=== PATIENT | male | born 1970 | race Caucasian/White ===

== ENCOUNTER 2023-03-15 13:26 | Outpatient (CLI) | payer OTHER, BC, SELFPAY ==
--- NOTE | 2023-03-15 13:45 | MR_ITS ---
[facility] [address] [facility] [address] Phone:?[phone] Fax:?[phone] Referring Physician Information: Vincenzo Lyon M.D. [address] [place] [id number] Phone:?[phone] Fax:?[phone] Patient:?Eren Concepcion D.O.B:?1970 Sex:?Male Phone:?[phone] [facility] MRN:?[id number] Exam Date:?03/15/2023 ? EXAM: MRI OF THE LEFT ELBOW CLINICAL INFORMATION: The patient is a 52-year-old with left elbow pain. Evaluate for distal biceps injury. PRIOR SURGERY: None reported. COMPARISON STUDIES: There are no prior studies available for comparison. TECHNICAL INFORMATION: Imaging was produced on a high-field, 1.5 Vika MR scanner. Axial proton-density and T2 imaging of the left elbow was performed in addition to sagittal T1, proton-density, T2, and STIR imaging. Coronal proton- density, T2, T1, and STIR imaging was also performed. FINDINGS: Elbow joint: Effusion: Mild. Ganglion cyst: None. Osteochondral surfaces: No definite chondral or osteochondral injury can be seen along the articular surfaces of the left elbow. Loose bodies: No well-defined intra-articular loose bodies are present. Olecranon bursa: Soft tissue edema and/or hemorrhage can be seen along the posterior, medial, and lateral aspects of the elbow, however no definite changes are seen to suggest olecranon bursitis. Osseous structures: Humerus: No fracture, osteochondritis dissecans or marrow edema/pathology. Radius: No fracture or marrow edema. Ulna: No fracture or marrow edema. Myotendinous structures: Biceps: There is a complete disruption of the distal biceps tendon from its radial tuberosity attachment with retraction of the tendon to the level of the distal humeral diaphysis, seen on sagittal series 5 image 13. The retraction measures approximately 10.5 cm in craniocaudal dimension. Soft tissue edema and/or hemorrhage is noted within the antecubital fossa region with a fluid collection seen about the retracted distal biceps tendon on coronal series 10 image 6 and on sagittal series 5 image 16. The fluid collection measures approximately 8.5 cm in craniocaudal dimension, 2.5 cm in anteroposterior dimension, and 4.5 cm in mediolateral dimension. Moderate underlying biceps tendinosis can be seen with strain of the distal biceps myotendinous junction. Triceps: Intact posterior tendinous and anterior muscular insertions and lateral aponeurotic component, without tendinopathy, strain or tear. Brachialis: No strain/tear. Forearm extensors: No tear or tendinopathy. There is no evidence for lateral epicondylitis. Forearm flexors: No tear or tendinopathy. There is no evidence for medial epicondylitis. Ligaments: Ulnar collateral: No sprain or disruption. Radial collateral: Normal. Lateral ulnar collateral: Normal. Annular: Intact. Neurovascular structures: Ulnar nerve: Normal, without appreciable edema, thickening or mass. Median neurovascular bundle: Normal. Radial neurovascular bundle: Normal. CONCLUSION: 1. Rupture of the distal biceps tendon from its radial tuberosity attachment with retraction measuring 10.5 cm in craniocaudal dimension. Please see the description above. 2. No other musculotendinous abnormalities are seen. 3. No bony or osteochondral injuries are present. 4. The ligamentous structures of the elbow appear intact. 5. No neurovascular abnormalities are seen. [facility] Electronically signed on 03/15/2023 4:00:00 PM by Daljit Velásquez M.D.
== END 2023-03-15 13:27 | disposition home or self-care (01) ==
PROVIDERS: PCP Physician Assistant Medical; Visit Provider Orthopaedic Surgery
DX: M25.522 Pain in left elbow (principal); S46.212A Strain of muscle, fascia and tendon of other parts of biceps, left arm, initial encounter
CPT/HCPCS: 73221

== ENCOUNTER 2023-03-19 06:00 | Day surgery (SDC) | payer OTHER, SELFPAY ==
[2023-03-19] MEDS: CELECOXIB 200 MG CAPSULE PO (06:03)
[2023-03-19] MEDS: OXYCODONE (CR) 10 MG TAB.ER.12H PO (06:03)
[2023-03-19] MEDS: ACETAMINOPHEN 500 MG TABLET 1000 MG PO (06:03)
[2023-03-19 06:18] VITALS: BMI 58.3
[2023-03-19] MEDS: LACTATED RINGERS 1000 ML 1,000 ML 100 ML IV (07:00)
[2023-03-19] MEDS: SODIUM CHLORIDE 0.9 % (FLUSH) 10 ML SYRINGE IVF (07:00)
[2023-03-19 07:09] VITALS: BP 139/94; PULSE 55; RESP 16; TEMP 36.6; O2SAT 97
[2023-03-19] MEDS: MIDAZOLAM HCL 1 MG/ML inj IVP (07:11)
[2023-03-19] MEDS: fentaNYL 100 MCG/2 ML inj IVP (07:11)
--- NOTE | 2023-03-19 07:11 | SUR.PREOP ---
TIME?OUT:?0711 PT/RN/MDA?VERIFICATION?OF?SURGICAL?SITE,?PROCEDURE,?AND?CONSENT OBTAINED?PRIOR?TO?INVASIVE?PROCEDURE.
[2023-03-19 07:15] VITALS: BP 128/92; PULSE 56; RESP 16; O2SAT 93
--- NOTE | 2023-03-19 07:23 | SUR.PREOP ---
Patient provided home covid negative results to RN.
[2023-03-19] MEDS: CEFAZOLIN 1 GM inj 3 GM IVP (07:30)
--- NOTE | 2023-03-19 07:54 | P.NB_ITS ---
Nerve Block Nerve Block Time Seen by Provider: 07:12 Date Seen: 03/19/23 Type of block requested by surgeon for post-operative analgesia: axillary Side: right Time out performed: Yes Verification of patient name: Yes Verification of date of : Yes Site marking: site marked Name of person performing procedure: Radu Continuous monitoring Was continuous monitoring of O2 sat, B/P, director of cardiac rehabilitation, recorded every 15 minutes?: Yes Procedure Checklist: sterile prep, needles and gloves Ultrasound guided. Images saved: Yes Medications given in 5ml increments after negative aspiration: Ropivicaine %: 0.5 mL: 30 Needle gauge: 22 Patient tolerated procedure well: Yes Additional comments: Needle noted adjacent to nerve Block Charges Block Charge (with Pro Fee): Brachial Plexus Use of Ultrasound Machine for Block: Yes- US Guidance/pain block
--- NOTE | 2023-03-19 07:54 | W.ANESCHARGE ---
Anesthesia Charges Start Date/Time Anesthesia Start Date: 03/19/23 Anesthesia Start Time: 07:24 Stop Date/Time Anesthesia Stop Date: 03/19/23 Anesthesia Stop Time: 09:15
--- NOTE | 2023-03-19 08:48 | P.ORPRC_ITS ---
Procedure Note Date of procedure: 03/19/23 Procedure: PREOPERATIVE DIAGNOSIS: Right upper extremity distal biceps tendon tear POSTOPERATIVE DIAGNOSIS: Right upper extremity distal biceps tendon tear NAME OF OPERATION: Primary [employer] SURGEON: Vincenzo Lyon MD PROFESSIONAL NURSING TUTOR: Anne Anne PA-C, KENYA Noriega ANESTHESIA: Axillary block plus monitored anesthesia care ESTIMATED BLOOD LOSS: 5 mL. COMPLICATIONS: None. SPECIMENS: None. DRAINS: None. PREOPERATIVE ANTIBIOTICS: Ancef 3 grams INDICATIONS: The patient is a 52-year-old male with a history of a right elbow injury, sustaining full-thickness disruption of the distal biceps tendon. Operative intervention was recommended. The risks, benefits and expected outcomes were discussed in detail. These included but were not limited to: Infection, bleeding, injury to blood vessel or nerve, venous thromboembolism. All questions were answered to their satisfaction. Use of an inside sales assistant was necessary throughout the case for patient positioning and safety, soft tissue retraction and closure. A modifier 22 should be added to this case. The patient weighs 212 kg with a BMI of 58.4 kg/meter sq. Because of this body habitus only light sedation was felt safe by anesthesia. Therefore, there was significant motor function to the muscles in the arm. This and the size of the arm made exposure and repair quite difficult. This doubled the time typically required to complete the case. PROCEDURE: An axillary block and sedation was administered. The patient was placed supine on the operating room table. The right upper extremity was prepped and draped in the usual sterile fashion. The limb was exsanguinated with the Scotty bandage. The pneumatic tourniquet was inflated to 250 mm of mercury. A transverse incision was made 4 cm distal to the antecubital crease. Subcutaneous dissection was taken with tenotomy scissors to the antecubital veins which were carefully preserved throughout the case. The lateral antebrachial cutaneous nerve was visualized in the lateral aspect of our incision and carefully protected throughout the case. The Kevinpert rongeur and the joker elevator were used to debride the radial tuberosity. Dissection was carried proximally, to the biceps tendon. It was markedly retracted and encased in a seroma. We debrided the distal end of biceps tendon and placed a whipstitch with #2 FiberWire suture. The forearm was placed in maximum supination. We drilled a bicortical guide pin through the radial tuberosity. We drilled an 8 mm unicortical socket. We placed the button on the limbs of the whipstitch and advanced it into the socket through the deep guide pin hole and flipped it on the far cortex of proximal radius. We kept the forearm in maximum supination and flexed the elbow while retracting the limbs of the suture. This advanced the distal biceps tendon into the socket to a depth of 10 mm. We placed 1 limb of the suture through the tendon and tied several knots over the top of the tendon. We placed an 8 mm x 10 mm peek interference screw over the radial side of the tendon, pushing it ulnarly. We tied several knots over the top of the screw. This provides an excellent repair of the distal biceps tendon to its anatomic insertion. The wound was irrigated with normal saline. Subcutaneous tissues were closed with a 2-0 Vicryl. Skin was closed with a 3-0 Monocryl in a subcuticular fashion. A dry dressing, splint and sling were applied. Sponge and needle counts were correct x2. The patient tolerated the procedure well. There were no apparent complications. They were carefully transferred to the hospital bed and taken to the postanesthesia care unit in satisfactory condition. PLAN: The patient will be discharged to home. They will follow up in the office next week for a wound check and an AP and lateral view of the elbow, prior to being seen, in preparation for occupational therapy. We will begin gentle active range of motion at that time.
[2023-03-19 09:11] VITALS: BP 122/77; PULSE 92; RESP 16; TEMP 36.2; O2SAT 96
[2023-03-19 09:15] VITALS: BP 124/81; PULSE 92; RESP 16; O2SAT 94
--- NOTE | 2023-03-19 09:19 | W.ANESCHARGE ---
Anesthesia Charges Start Date/Time Anesthesia Start Date: 03/19/23 Anesthesia Start Time: 07:24 Stop Date/Time Anesthesia Stop Date: 03/19/23 Anesthesia Stop Time: 09:15
[2023-03-19 09:45] VITALS: BP 131/88; PULSE 62; RESP 16; TEMP 36.5; O2SAT 95
== END 2023-03-19 10:03 | disposition home or self-care (01) ==
PROVIDERS: PCP Physician Assistant Medical; Visit Provider Orthopaedic Surgery
PROC: (CPT 24341; principal; 2023-03-19 07:15)
DX: S46.211A Strain of muscle, fascia and tendon of other parts of biceps, right arm, initial encounter (principal); Z68.43 Body mass index [BMI] 50.0-59.9, adult; E66.01 Morbid (severe) obesity due to excess calories
CPT/HCPCS: 24341; 01716; 64415; 76942; A4580; A9270; C1713; J0690; J1100; J2250; J2405; J2704; J2795; J3010; J3490; J7120

== ENCOUNTER 2023-06-11 15:00 | Outpatient (RCR) | payer OTHER, SELFPAY | END 2023-06-11 17:54 | disposition home or self-care (01) | PROVIDERS: PCP Physician Assistant Medical; Visit Provider Orthopaedic Surgery | DX: Z98.890 Other specified postprocedural states (principal); Z51.89 Encounter for other specified aftercare | CPT/HCPCS: 97035; 97110; 97140; 97165; X5282 ==

== ENCOUNTER 2023-06-17 07:09 | Outpatient (CLI) | payer BC, SELFPAY ==
--- NOTE | 2023-06-17 08:18 | W.ANESCHARGE ---
Anesthesia Charges Start Date/Time Anesthesia Start Date: 06/17/23 Anesthesia Start Time: 07:56 Stop Date/Time Anesthesia Stop Date: 06/17/23 Anesthesia Stop Time: 08:15
--- NOTE | 2023-06-17 08:37 | W.ANESCHARGE ---
Anesthesia Charges Start Date/Time Anesthesia Start Date: 06/17/23 Anesthesia Start Time: 07:56 Stop Date/Time Anesthesia Stop Date: 06/17/23 Anesthesia Stop Time: 08:15
== END 2023-06-17 07:10 | disposition home or self-care (01) ==
PROVIDERS: PCP Physician Assistant Medical; Visit Provider Internal Medicine Gastroenterology
DX: Z12.11 Encounter for screening for malignant neoplasm of colon (principal); K63.5 Polyp of colon
CPT/HCPCS: 00811; 00812; 45385; 88305; J2704

== ENCOUNTER 2024-07-13 12:59 | Outpatient (CLI) | payer BC, SELFPAY ==
--- OUTSIDE RECORDS SUMMARY | 2024-07-13 13:12 | XMS_ITS | Clinical Summary ---
Author Organization [employer] [facility] Address [place], [place] [address] Care Team Providers Care Radiation Therapy Technologist Name Role Phone Vicki Alexis Primary Care Provider Allergies No known active allergies Medications Medication Sig Dispensed Refills Start Date End Date Status lisinopriL (PRINIVIL; ZESTRIL) 40 mg tabletIndications: Hypertension, unspecified type Take 1 Tablet (40 mg) by mouth once daily. 90 Tablet 3 03/24/2024 Active metoprolol succinate SR (TOPROL XL) 200 mg Sustained-Release tabletIndications: Hypertension, unspecified type Take 1 Tablet (200 mg) by mouth once daily. 90 Tablet 3 03/24/2024 Active furosemide (LASIX) 20 mg tabletIndications: Bilateral lower extremity edema Take 2 Tablets (40 mg) by mouth two times daily. 360 Tablet 1 04/17/2024 Active semaglutide (OZEMPIC) 1 mg/dose (4 mg/3 mL) penIndications:Cla ss 3 severe obesity with body mass index (BMI) of 60.0 to 69.9 in adult, unspecified obesity type, unspecified whether serious comorbidity present (HC) Inject 1 mg subcutaneous once weekly. 9 mL 05/18/2024 Active BIPAPIndications:O SA (obstructive sleep apnea) Auto BIPAP machine for home use at pressure: epap 7-20cmw PS 5-10 , choice of mask, lifetime length of need, daily use. 1 Each 11 05/29/2024 Active Active Problems Problem Noted Date Diagnosed Date Chronic acquired lymphedema 06/25/2024 Colon polyp 06/21/2023 Overview: Colonoscopy 06/2023 TA, repeat in 7 years MARCELINO (obstructive sleep apnea) 02/03/2021 Morbid obesity with BMI of 50.0-59.9, adult /0 04/2021 Hypertension 10/14/2011 Resolved Problems Problem Noted Date Diagnosed Date Resolved Date Meralgia paresthetica 10/26/20132021 Encounters Date Type Department Care Team Description 06/25/2024 9:00 AM CDT Office Visit [facility] [address] [place] [address] Nicolas Ashby MD Sleep Follow-up 06/25/2024 Travel 06/22/2024 Travel 06/09/2024 3:30 PM CDT Office Visit [address] [place] [address] Rl Kaur MD Consult (Initial Office Visit /ECHO 03/24/Recent Labs /PT states feeling good./No cardiac symptoms./Discuss swelling in legs.) 06/09/2024 Travel 05/28/2024 Telephone [facility] [address] [place] [address] Nicolas Ashby MD 05/18/2024 3:20 PM CDT Office Visit [facility] [address] [place] [address] Vicki Alexis PA Medication Management (Lasix and ozempic) 05/18/2024 Travel 04/22/2024 2:00 PM CDT Ancillary Procedure [facility] [address] [place] [id number] 04/21/2024 Travel 04/17/2024 2:40 PM CDT Office Visit [facility] [address] [place] [address] Vicki Alexis PA Medication Management (Lasix and ozempic -) 04/17/2024 Travel from Last 3 Months Immunizations Name Administration Dates Next Due COVID-19 vaccine (Alexia-J& J) KIRAN CAUSEY 03/13/2021 COVID-19 vaccine (Pfizer-Bio NTech 30mcg/0.3mL) 12YO+ BIVALENT PF, MDV 09/28/2022 Influenza, IIV3 (Age 6-35 mos) 09/21/2011 Influenza, IIV3 (Age >=3 years) 10/26/2013,09/17,09/21/2011 Influenza, IIV4 09/28/2022,,10/03/2020,09/08/20 19 Influenza, IIV4 (=>6mos) MDV 09/27/2017 Td (Age >=7 Years) 04/03/2022 Tdap 09/21/2011 Family History Medical History Relation Name Comments Good Health Father Good Health Mother Hypertension Mother Diabetes Paternal Grandfather Cancer No Family History Heart attack No Family History Relation Name Status Comments Father Alive Mother Alive Paternal Grandfather Social History Tobacco Use Types Packs/Day Years Used Date Smoking Tobacco: Never Smokeless Tobacco: Never Tobacco Cessation:Counseling Given: Yes Alcohol Use Standard Drinks/Week Comments No 0 (1 standard drink = 0.6 oz pur e alcohol) PHQ-2 Answer Date Recorded PHQ-2 TOTAL SCORE 0 04/03/2022 Social Connections Answer Date Recorded Frequency of Communication with Friends and Fami ly 0 03/24/2024 Financial Resource Strain Answer Date R ecorded Difficulty of Paying Living Expenses 3 03/24/2024 Difficulty of Paying Living Expenses Not on file 03/24/2024 Food Insecurity Answer Date Recorded Worried About Running Out of Food in the Last Ye ar 1 03/24/2024 Transportation Needs Answer Date Record ed Lack of Transportation (Medical) 1 03/24/2024 Housing Stability Answer Date Recorded Unable to Pay for Housing in the Last Year 1 03/24/2024 Sex and Gender Information Value Date Recorded Sex Assigned at Not on file Gender Identity Not on file Sexual Orientation Not on file Obstetrics History Last Filed Vital Signs Vital Sign Reading Time Taken Comments Blood Pressure 143/84 06/25/2024 8:48 AM CDT Pulse 68 06/25/2024 8:48 AM CDT Temperature 37 ??C (98.6 ??F) 02/22/2023 11:04 AM CDT Respiratory Rate 20 02/21/2023 12:11 PM CDT Oxygen Saturation 97% 06/25/2024 8:48 AM CDT Inhaled Oxygen Concentration - - Weight 217.3 kg (479 lb) 06/25/2024 8:48 AM CDT Height 190.5 cm (6' 3) 06/25/2024 8:48 AM CDT Body Mass Index 59.87 06/25/2024 8:48 AM CDT Plan of Treatment Upcoming Encounters Date Type Department Care Team (Late st Contact Info) Description 08/17/2024 3:20 PM CDT Office Visit [facility] [address] [place] [address] Vicki Alexis PA [address] [place] [address] Health Maintenance Due Date Last Done Comments HIV for age 15-65 1987 Hepatitis C screening for age 18-79 1990 Zoster (shingles) series for age 50+ (1 of 2) 2022 Depression screening for age 12+ 04/03/2023 04/03/2022, 02/03/2021, 03/03/2019, Additional history exists COVID-19 vaccine series ( season) 2023 09/28/2022, 11/14/2021, 03/13/2021 Influenza for age 50-64 08/02/2024 09/28/20, 11/14/2021, 10/03/2020, Additional history exists BMI (ht and wt on same day) for age 18+ 06/25/2025 06/25/2024, 06/09/2024, 03/24/2024, Additional history exists Lipids for age 45-75 03/24/2029 03/24/2024, 03/18/2023, 04/03/2022, Additional history exists Colonoscopy through age 75 06/17/2030 06/17/2023, Tetanus booster 04/03/2032 04/03/2022, 09/21/2011 Tdap Completed 09/21/2011 Pneumococcal series for age 6-64 Aged Out No longer eligible based on patient's age to complete this topic Procedures Procedure Name Priority Date/Time Associated Diagnosis Comments EKG 12 LEAD Today 06/09/2024 3:18 PM CDT Bilateral lower extremity edema ECHO TTE COMPLETE W CONTRAST Routine 04/22/2024 2:57 PM CDT Bilateral lower extremity edema BASIC METABOLIC PANEL Routine 04/17/2024 3:11 PM CDT Bilateral lower extremity edema LIPID PANEL W REFLEX MEASURED LDL Routine 03/24/2024 9:17 AM CDT Screening cholesterol level COLONOSCOPY SCREENING Routine 06/17/2023 12:00 AM CDT Screening for colon cancer from Last 3 Months or Most Recently Relevant to Health Maintenance Results * EKG 12 LEAD (06/09/2024 3:18 PM CDT) Interpretation Normal sinus rhythm Right bundle branch block Abnormal ECG No previous ECGs available Ventricular Rate 75 BPM Atrial Rate 75 BPM P-R Interval 174 ms QRS Duration 164 ms QT 414 ms QTc 462 ms P [place] 48 degrees R At[place] -14 degrees T [place] 7 degrees 06/09/2024 3:18 PM CDT 06/15/2024 10:13 AM CDT Rl Kaur MD EKG ORD * ECHO TTE COMPLETE W CONTRAST (04/22/2024 2:57 PM CDT) AORTIC VALVE MEAN PG 4 mmHg EJECTION FRACTION 44 % PEAK TR VELOCITY 2.7 m/s LVEDD 5.9 cm EJECTION FRACTION 50 - 55% Anatomical Region Laterality Modality Ultrasound 04/22/2024 1:54 PM CDT Narrative 04/22/2024 4:02 PM CDT ECHOCARDIOGRAM EREN CONCEPCION ?Accession#: ?? [id number] : ?1970 53 years Study Date: ?? 04/22/2024 1:54:37 PM Gender: M ? BP: ? 120/90 mmHg Height: 191.00 cm ? BSA: ?3.20 m? ? ? Weight: 219.00 kg ? Tech: ? MJJ ?Referring MD: VICKI ALEXIS Site: ? [facility] Reading Location: MOBILE-OP Patient Location: Outpatient. Procedure: 2D w/ Contrast, Color Doppler and Spectral Doppler. Indication for study: Bilateral lower extremity edema Cardiac Rhythm: Regular.Study quality: Technically limited. Imaging limitations: This study was subject to imaging limitations due to body habitus. Final Impressions: 1. Technically limited exam. 2. Echo contrast was administered to enhance visualization of all left ventricular segments. 3. Mild to moderately increased LV size, mildly increased wall thickness, low normal global systolic function with an estimated EF of 50 - 55%. 4. Right ventricular cavity size is moderately enlarged, global systolic RV function is not well visualized. TAPSE is within normal limits at 2.2 cm but limited contrast enhanced images suggest at least mild dysfunction. 5. The aortic sinus is normal for age/sex/bsa with a maximal diameter of 3.9 cm. 6. No hemodynamically significant valvular heart disease. 7. Mild tricuspid regurgitation with an estimated RVSP of 29 mmHg plus the RA pressure (unable to estimate RA pressure). Comparison There are no prior studies on this patient for comparison purposes. Chamber Sizes and Function Mild to moderately increased left ventricular size, mildly increased wall thickness, low normal global systolic function with an estimated EF of 50 - 55%. Left atrial size is normal. Right ventricular cavity size is moderately enlarged, global systolic RV function is not well visualized. The right atrium is moderately enlarged. Right atrial area is 18 cm? ? ?. The pulmonary artery is of normal size and origin. The sinus of Valsalva is normal for age/sex/bsa. The ascending aorta is normal sized. Valves, RV Pressures and Diastolic Function The aortic valve is normal in structure and trileaflet, no stenosis and no regurgitation. The mitral valve is not well visualized, no mitral regurgitation. Normal diastolic function. The tricuspid valve is normal in structure. Tricuspid regurgitation is mild regurgitation. The tricuspid regurgitant velocity is 2.7 m/s, the estimated right ventricular systolic pressure is 29 mmHg plus right atrial pressure. The pulmonic valve is normal. Trace pulmonary regurgitation. Masses, Effusion, Shunts There is no pericardial effusion. The inferior vena cava is not well visualized, respiratory size variation not well visualized. Interatrial septum is not well visualized. MEASUREMENTS AND CALCULATIONS 2-D Measurements and LV Function: LVID (d) 5.9 cm LV FS% (2D) ?? 49 % LVID (s) 3.0 cm LVOT diameter 2.1 cm IVS (d) ??1.1 cm HR ?62 bpm LVPW (d) 1.4 cm LA Vol index ??23 ml/m2 Ao Sinus 3.9 cm RA area ? 18 cm? ? ? Asc Ao ?? 3.7 cm LA ? 4.0 cm Diastology: Mitral ?Pulmonary veins E Peak 0.9 m/s ??Pulm s ?44.3 cm/s A Peak 0.7 m/s ??Pulm d ?53.4 cm/s E/A ?1.3 ?Pulm s/d ratio ??0.83 DT ? 229 msec Aortic Valve: Vmax ? 1.4 m/s ??JACKIE (V) ?? 2.58 cm? ? ? VTI ?0.25 m ?? JACKIE (I) ?? 2.39 cm? ? ? LVOT V max 1.0 m/s ??Max PG ?8 mmHg LVOT VTI ?? 0.17 m ?? Mean PG ?? 4 mmHg SV ? 59 ml ?Dim Index 0.70 SV index ?? 19 ml/m? ? ? CO ?3.7 l/min ?CI ?1.2 l/min/m? ? ? Mitral Valve: MVA ? 3.3 cm? ? ? MV P 1/2 ??66 msec MV Mean G 1 mmHg MV VTI ?0.30 m Tricuspid Valve and estimated PA pressures: TR Vmax 2.7 m/s TAPSE 2.2 cm TR maxG 29 mmHg Contrast documentation: 3 ml diluted Definity, lot #[id number], [facility]# [id number] was administered peripherally to enhance visualization of all left ventricular segments. . This study was interpreted by an [facility] accredited facility. ??Final ?? Procedure Note Romeo Chavarria MD - 04/22/2024 ECHOCARDIOGRAM EREN CONCEPCION : 1970 53 years Study Date: 04/22/2024 1:54:37 PM Gender: M BP: 120/90 mmHg Height: 191.00 cm BSA: 3.20 m? ? ? Weight: 219.00 kg Tech: ANTONIETA Referring MD: VICKI ALEXIS Site: [facility] Reading Location: MOBILE-OP Patient Location: Outpatient. Procedure: 2D w/ Contrast, Color Doppler and Spectral Doppler. Indication for study: Bilateral lower extremity edema Cardiac Rhythm: Regular.Study quality: Technically limited. Imaging limitations: This study was subject to imaging limitations due tobody habitus. Final Impressions: 1. Technically limited exam. 2. Echo contrast was administered to enhance visualization of all leftventricular segments. 3. Mild to moderately increased LV size, mildly increased wall thickness,low normal global systolic function with an estimated EF of 50 - 55%. 4. Right ventricular cavity size is moderately enlarged, global systolicRV function is not well visualized. TAPSE is within normal limits at 2.2cm but limited contrast enhanced images suggest at least milddysfunction. 5. The aortic sinus is normal for age/sex/bsa with a maximal diameter of3.9 cm. 6. No hemodynamically significant valvular heart disease. 7. Mild tricuspid regurgitation with an estimated RVSP of 29 mmHg plusthe RA pressure (unable to estimate RA pressure). Comparison There are no prior studies on this patient for comparison purposes. Chamber Sizes and Function Mild to moderately increased left ventricular size, mildly increased wallthickness, low normal global systolic function with an estimated EF of 50- 55%. Left atrial size is normal. Right ventricular cavity size ismoderately enlarged, global systolic RV function is not well visualized.The right atrium is moderately enlarged. Right atrial area is 18 cm? ? ?. Thepulmonary artery is of normal size and origin. The sinus of Valsalva isnormal for age/sex/bsa. The ascending aorta is normal sized. Valves, RV Pressures and Diastolic Function The aortic valve is normal in structure and trileaflet, no stenosis and noregurgitation. The mitral valve is not well visualized, no mitralregurgitation. Normal diastolic function. The tricuspid valve is normal instructure. Tricuspid regurgitation is mild regurgitation. The tricuspidregurgitant velocity is 2.7 m/s, the estimated right ventricular systolicpressure is 29 mmHg plus right atrial pressure. The pulmonic valve isnormal. Trace pulmonary regurgitation. Masses, Effusion, Shunts There is no pericardial effusion. The inferior vena cava is not wellvisualized, respiratory size variation not well visualized. Interatrialseptum is not well visualized. MEASUREMENTS AND CALCULATIONS 2-D Measurements and LV Function: LVID (d) 5.9 cm LV FS% (2D) 49 % LVID (s) 3.0 cm LVOT diameter 2.1 cm IVS (d) 1.1 cm HR 62 bpm LVPW (d) 1.4 cm LA Vol index 23 ml/m2 Ao Sinus 3.9 cm RA area 18 cm? ? ? Asc Ao 3.7 cm LA 4.0 cm Diastology: Mitral Pulmonary veins E Peak 0.9 m/s Pulm s 44.3 cm/s A Peak 0.7 m/s Pulm d 53.4 cm/s E/A 1.3 Pulm s/d ratio 0.83 DT 229 msec Aortic Valve: Vmax 1.4 m/s JACKIE (V) 2.58 cm? ? ? VTI 0.25 m JACKIE (I) 2.39 cm? ? ? LVOT V max 1.0 m/s Max PG 8 mmHg LVOT VTI 0.17 m Mean PG 4 mmHg SV 59 ml Dim Index 0.70 SV index 19 ml/m? ? ? CO 3.7 l/min CI 1.2 l/min/m? ? ? Mitral Valve: MVA 3.3 cm? ? ? MV P 1/2 66 msec MV Mean G 1 mmHg MV VTI 0.30 m Tricuspid Valve and estimated PA pressures: TR Vmax 2.7 m/s TAPSE 2.2 cm TR maxG 29 mmHg Contrast documentation: 3 ml diluted Definity, lot #[id number], [facility]#[id number] was administered peripherally to enhance visualization of allleft ventricular segments. . This study was interpreted by an [facility] accredited facility. Final Vicki DENNEY ECHO ORD * BASIC METABOLIC PANEL (04/17/2024 3:11 PM CDT) SODIUM 139 136 - 145 mmol/L 04/17/2024 10:28 PM CDT [facility] POTASSIUM 4.7 3.5 - 5.1 mmol/L 04/17/2024 10:28 PM CDT [facility] CHLORIDE 98 98 - 107 mmol/L 04/17/2024 10:28 PM CDT [facility] CO2,TOTAL 29 22 - 29 mmol/L 04/17/2024 10:28 PM CDT [facility] ANION GAP 12 5 - 18 04/17/2024 10:28 PM CDT [facility] GLUCOSE 87 70 - 99 mg/dL 04/17/2024 10:28 PM CDT [facility] CALCIUM 9.4 8.6 - 10.0 mg/dL 04/17/2024 10:28 PM CDT [facility] BUN 13 6 - 20 mg/dL 04/17/2024 10:28 PM CDT [facility] CREATININE 0.89 0.70 - 1.20 mg/dL 04/17/2024 10:28 PM T [facility] BUN/CREAT RATIO 15 10 - 20 10:28 PM CDT [facility] eGFR >90 >90 mL/min/1.7 3m2 04/17/2024 10:28 PM CDT [facility] Comment:As of 2022, eG FR is calculated by the CKD-EPI creatinine equation without race adjustment. ??eGFR can be influenced by muscle mass, exercise, and diet. ??The reported eGFR is an estimation only and is only applicable if the renal function is stable. Blood BLOOD SPECIMEN / Unknown Venipuncture / Unknown 04/17/2024 3:11 PM CDT 04/17/2024 3:11 PM CDT Vicki DENNEY CHEMISTRY [facility] [address] [place] [address], [place] * (ABNORMAL) LIPID PANEL W REFLEX MEASURED LDL (03/24/2024 9:17 AM CDT) CHOLESTEROL,TOTAL 196 100 - 199 mg/dL 03/24/2024 7:59 PM CDT [facility] Comment: Cholesterol, Total Reference Ranges Desirable <200 mg/dL Borderline 200-239 mg/dL High >=240 mg/dL TRIGLYCERIDES 89 <150 mg/dL 03/24/2024 7:59 PM CDT [facility] HDL CHOLESTEROL 41 >40 mg/dL 7:59 PM T [facility] NON-HDL CHOLESTEROL 155(H) <145 mg/dl 03/24/2024 7:59 PM CDT [facility] CHOL/HDL RATIO 4.78(H) <4.50 03/24/2024 7:59 PM CDT [facility] LDL CHOLESTEROL 137(H) <=130 mg/dL 03/24/2024 7:59 PM CDT [facility] VLDL CHOLESTEROL 18 <=30 mg/dL 03/24/2024 7:59 PM T [facility] PROVIDER ORDERED STATUS RANDOM 03/24/2024 7:59 PM CDT [facility] Blood BLOOD SPECIMEN / Unknown Venipuncture / Unknown 03/24/2024 9:17 AM CDT 03/24/2024 9:17 AM CDT Vicki DENNEY CHEMISTRY [facility] [address] [place] [address], * COLONOSCOPY SCREENING [[id number]] (06/17/2023 12:00 AM CDT) Aris Castañeda MD GI PROCEDURE ORD from Last 3 Months or Most Recently Relevant to Health Maintenance Care Teams Radiation Therapy Technologist Relationship Specialty Start Date End Date Vicki Alexis [place] [address] PCP - General Physician Engine Repairer 07/22/23
== END 2024-07-13 13:00 | disposition home or self-care (01) ==
PROVIDERS: PCP Physician Assistant Medical; Visit Provider Internal Medicine Cardiovascular Disease
DX: R60.0 Localized edema (principal)
CPT/HCPCS: 93970

== ENCOUNTER 2024-08-15 16:07 | Emergency (ER) | payer BC, SELFPAY ==
[2024-08-15 16:16] VITALS: BP 106/77; PULSE 118; RESP 22; TEMP 36.4; O2SAT 93; BMI 59.4
--- NOTE | 2024-08-15 16:29 | CRLHL7_ITS ---
For Patients: As a result of the Century Cures Act, medical imaging exams and procedure reports are released immediately into your electronic medical record. You may view this report before your referring provider. If you have questions, please contact your health care provider. INDICATION: Redness, pain, and swelling in the lower extremity TECHNIQUE: Ultrasound venous duplex lower right extremity. Compression venous exam was performed using stone-scale, color Doppler, and spectral Doppler analysis. COMPARISON: None. FINDINGS: Technically challenging examination due to patient body habitus. Visualized portions of the right common femoral vein, femoral vein, popliteal vein, and posterior tibial vein are patent. IMPRESSION: Technically challenging examination due to patient body habitus. No deep venous thrombosis is identified in the right lower extremity. Dictated by Lexx Wheeler MD @ 08/15/2024 6:47:40 PM (Electronically Signed)
--- NOTE | 2024-08-15 16:31 | ED_ITS ---
HPI - General Adult General Date Seen: 08/15/24 Chief complaint: Extremity Pain/Injury, Lower Stated complaint: right leg looked at, slip Time Seen by Provider: 08/15/24 16:24 Source: patient Mode of arrival: ambulatory Limitations: no limitations History of Present Illness HPI narrative: Patient is a 54-year-old male with underlying lower extremity edema and hypertension. Three days ago, he says he was walking down some steps and slipped, his right ankle kind of got caught between the step and a post. At the time, he did not think anything of it, did not think he was injured. Denies any scrapes or bruising, was ambulatory without difficulty. Over the past day or so, he has developed redness, swelling and pain in the leg. He thought maybe it was just bruising related to his injury. He has not had fevers or chills, no nausea or vomiting. Denies diabetes or anything that would affect his immune system. Related Data Home Medications ?Medication ?Instructions ?Recorded ?Confirmed lisinopril 40 mg tablet 40 mg PO QDAY 03/06/23 08/15/24 metoprolol succinate 200 mg 200 mg PO QDAY 03/06/23 08/15/24 tablet,extended release 24 hr furosemide 20 mg tablet mg PO BID 08/15/24 Previous Rx's ?Medication ?Instructions ?Recorded potassium chloride 20 mEq 20 meq PO DAILY #10 tabs 08/15/24 tablet,extended release Allergies Allergy/AdvReac Type Severity Reaction Status Date / Time No Known Drug Allergies Allergy Verified 05/01/23 13:22 Review of Systems Status of ROS: Reports: 10 or more systems reviewed and unremarkable except as noted in History and below [facility] Medical History Hypertension ?I10 - Essential (primary) hypertension (ICD-10) Surgical History Hx of elbow surgery (03/19/23) ?Z98.890 - Other specified postprocedural states (ICD-10) Social History Smoking Status: Never smoker How often do you have a drink containing alcohol: monthly or less How many standard drinks containing alcohol do you have on a typical day: 1 or 2 How often do you have six or more drinks on one occasion: Never AUDIT-C Alcohol total score: 1 Non-prescribed substance use: denies use Caffeine: Yes (2c/day) Exam Narrative: Exam Narrative: Vital signs as noted above. In general, an alert, nontoxic male. He is overweight. Head: Normocephalic, atraumatic. Eyes: Pupils are equal reactive. Extraocular movements are full. Conjunctivae are normal. ENT: Mucous membranes are moist. Throat is normal. Neck: Supple without lymphadenopathy. Heart: Regular rate and rhythm. No murmur or rub. Lungs: Clear bilaterally. No increased work of breathing, crackles or wheezes. Abdomen: Soft and nontender. Extremities: On the left, he has a little bit of edema, mild venous stasis changes. On the right, there is erythema in the anterior hodge, a couple patchy areas in the posterior calf and some erythema on the dorsum of the foot as well. He has multiple small wounds which his says are welding wounds. Distal CMS is intact. No crepitus or subcu air. Really not tender to palpation. Skin is warm however. No drainage. Compartments are soft although he does have quite a bit of edema on the right. Neurologic: Patient is alert and oriented to person and place. Speech is fluent. Face is symmetric. Moves all extremities equally. Affect: Normal. Skin: Warm and dry. Well perfused. Const: Vital Signs, click to edit/add: Vital Signs - 24 hr 08/15/24 16:16 08/15/24 18:00 08/15/24 19:00 Temperature 97.5 F L Pulse Rate 96 82 Pulse Rate [Pulse Oximeter] 118 H Respiratory Rate 22 16 16 Blood Pressure 112/74 Blood Pressure [Ri ght Upper Arm] 106/77 Pulse Oximetry 93 97 Oxygen Delivery Me thod Room Air Documenting provider has reviewed patient's vital signs: yes Course Course ED Course: Patient had a venous Doppler of the right lower extremity which was technically limited due to body habitus, but read as follows:FINDINGS: Technically challenging examination due to patient body habitus. Visualized portions of the right common femoral vein, femoral vein, popliteal vein, and posterior tibial vein are patent. IMPRESSION: Technically challenging examination due to patient body habitus. No deep venous thrombosis is identified in the right lower extremity. Overall, exam is most consistent with cellulitis. His white count was minimally elevated at 11.8, 83% neutrophils. His sodium was low 129, potassium was 3.1. CO2 of 29, BUN creatinine normal. Blood sugar was 144. Lactate was 1.9. CRP was elevated at 27. Patient is afebrile here, has no systemic complaints, was mildly tachycardic on arrival, had a L of normal saline, repeat vitals show a pulse of 82 and a blood pressure of 112/74. I think it is reasonable to trial outpatient antibiotics for him. I did give him a g of Ancef IV here. He also had potassium 40 mEq PO. I reviewed reasons for him to return to include dramatic or rapid worsening of redness, swelling or pain, new symptoms such as fevers, chills, vomiting or other systemic problems. He has an appointment with his primary doctor day after tomorrow, so I think that will be a good recheck. Discussed that he will likely not be significantly better tomorrow but by Saturday may be seeing some signs of improvement. If there is no improvement after 72 hours would consider IV antibiotics at that time. Potassium replacement ordered for him. This can be re-evaluated by primary care, likely related to his Lasix. Vital Signs Vital signs: Initial Vital Signs Temperature 97.5 F L 08/15/24 16:16 Temperature Source Temporal Artery Scan 08/15/24 16:16 Pulse Rate 118 H 08/15/24 16:16 Respiratory Rate 22 08/15/24 16:16 Blood Pressure 106/77 08/15/24 16:16 Blood Pressure Mean 86 08/15/24 16:16 Pulse Oximetry 93 08/15/24 16:16 Oxygen Delivery Method Room Air 08/15/24 16:16 Vital Signs Temperature 97.5 F L 08/15/24 16:16 Pulse Rate 118 H 08/15/24 16:16 Respiratory Rate 22 08/15/24 16:16 Blood Pressure 106/77 08/15/24 16:16 Pulse Oximetry 93 08/15/24 16:16 Oxygen Delivery Method Room Air 08/15/24 16:16 Temperature 97.5 F L 08/15/24 16:16 Pulse Rate 82 08/15/24 19:00 Respiratory Rate 16 08/15/24 19:00 Blood Pressure 112/74 08/15/24 19:00 Pulse Oximetry 97 08/15/24 19:00 Oxygen Delivery Method Room Air 08/15/24 16:16 Medications Administered Medications: Discontinued Medications Generic Name Dose Route Start Last Admin Trade Name Flavio PRN Reason Stop Dose Admin Sodium Chloride 1,000 mls @ 1,000 mls/hr 08/15/24 16:30 08/15/24 18:40 0.9 % Sodium Chloride 1000 Ml IV 08/15/24 17:29 Infused .Q1H LEANDRO Infusion Cefazolin Sodium 1 gm/ Sodium 100 mls @ 200 mls/hr 08/15/24 17:22 08/15/24 18:10 Chloride IVPB 08/15/24 17:23 Infused ONCE ONE Infusion Potassium Chloride 40 meq 08/15/24 17:25 08/15/24 17:39 Potassium Chloride 10 Meq Capsule Er PO 08/15/24 17:26 40 meq ONCE ONE Administration Medical Decision Making Lab Data Labs: Lab Results 08/15/24 Range/Units 16:45 WBC 11.76 H (4.50-11.00) K/uL RBC 5.02 (4.30-5.90) m/uL Hgb 14.8 (13.5-17.5) gm/dL Hct 42.8 (37.0-53.0) % MCV 85 (80-100) fL MCH 30 (26-34) pg MCHC 35 (32-36) gm/dL RDW Coeff of Yevgeniy 12.6 (11.5-15.5) % Plt Count 157 (140-440) K/uL Neut % (Auto) 83.4 H (42.0-72.0) % Lymph % (Auto) 6.5 L (20-44) % Simpson % (Auto) 9.5 (0.0-11.0) % Eos % (Auto) 0.0 (0.0-7.0) % Baso % (Auto) 0.3 (0.0-3.0) % Neut # (Auto) 9.80 H (1.7-7.0) K/uL Lymph # (Auto) 0.80 L (0.90-2.90) K/uL Simpson # (Auto) 1.10 H (0.00-0.90) K/UL Eos # (Auto) 0.00 (0.00-0.50) K/uL Baso # (Auto) 0.00 (0.00-0.30) K/uL Abs Immat Gran (auto) 0.00 (0.00-0.30) K/uL Imm/Tot Granulo (auto) 0.3 % Sodium 129 L (135-149) mmol/L Potassium 3.1 L (3.6-5.1) mmol/L Chloride 92 L (96-114) mmol/L Carbon Dioxide 29 (20-32) mmol/L Anion Gap 8 (7-15) mEq/L BUN 12 (7-30) mg/dL Creatinine 0.9 (0.5-1.5) mg/dL Estimated Creat Clear 114.75 Estimated GFR 103 ml/min Glucose 144 H (60-115) mg/dL Lactate 1.9 (0.5-1.9) mmol/L Calcium 8.2 L (8.4-10.6) mg/dL C-Reactive Protein 26.9 H (0.5-1.0) mg/dL Discharge Plan Discharge Clinical Impression: Cellulitis of right leg, Hypokalemia Patient Disposition: Home, Self-Care Condition: Stable Instructions: Cellulitis (ED) Additional Instructions: Take antibiotic as prescribed. I do not expect you to be significantly better in the next 24 hours, and you may get slightly worse in terms of redness/swelling. If, however, you are significantly worse, with widely spreading redness, high fevers, vomiting or other similar symptoms, you should return to the ER. You should begin to see some signs of improvement in the next 48-72 hours. If not, you should return or see your clinic. Elevate your leg as much as possible to help with swelling. Prescriptions: New potassium chloride 20 mEq tablet extended release 20 meq PO DAILY Qty: 10 2RF No Action metoprolol succinate 200 mg tablet extended release 24 hr 200 mg PO QDAY lisinopril 40 mg tablet 40 mg PO QDAY furosemide 20 mg tablet PO BID Follow Up/Referrals: Vicki Alexis PA-C [Primary Care Provider] - Stand Alone Forms: [employer] Info Instructions
--- OUTSIDE RECORDS SUMMARY | 2024-08-15 16:38 | XMS_ITS | Clinical Summary ---
Author Organization [employer] [facility] Address [place], [place] [address] Care Team Providers Care Eddy Current Inspector Name Role Phone Vicki Alexis Primary Care [...] Chronic acquired lymphedema 06/25/2024 Colon polyp 06/21/2023 Overview (06/21/2023): Colonoscopy 06/2023 TA, repeat in 7 years MARCELINO (obstructive sleep apnea) 02/03/2021 Morbid obesity with BMI of 50.0-59.9, adult /04/2021 Hypertension 10/14/2011 Resolved Problems Problem Noted Date Diagnosed Date Resolved Date Meralgia paresthetica 10/26/20132021 Encounters Date Type Department Care Team Description 07/13/2024 1:00 PM CDT Orders Only [facility] [address] [place] [address] 2 scans: (2-Ord) US VENOUS INSUFFICIENCY LOWER EXTREMITY BILATERAL ([id number]) 06/25/2024 9:00 AM CDT Office Visit [facility] [address] [place] [address] Nicolas Ashby MD Sleep Follow-up 06/25/2024 Travel 06/22/2024 Travel 06/09/2024 3:30 PM CDT Office Visit [address] [place] [address] Euegnie Kaur MD Consult (Initial Office Visit /ECHO 03/24/Recent Labs /PT states feeling good./No cardiac symptoms./Discuss swelling in legs.) 06/09/2024 Travel 05/28/2024 Telephone [facility] [address] [place] [address] Nicolas Ashby MD 05/18/2024 3:20 PM CDT Office Visit [facility] [address] [place] [address] Vicki Alexis PA Medication Management (Lasix and ozempic) 05/18/2024 Travel from Last 3 Months Immunizations Name Administration Dates Next Due COVID-19 vaccine (Alexia-J& J) KIRAN CAUSEY 03/13/2021 COVID-19 vaccine ([employer] 30mcg/0.3mL) 12YO+ BIVALENT KIRAN CAUSEY 09/28/2022 Influenza, IIV3 (Age 6-35 mos) 09/21/2011 [...] Description 08/17/2024 3:20 PM CDT Office Visit [facility] [address] [place] [address] Vicki Alexis PA [address] [place] [address] Health Maintenance Due Date Last Done Comments HIV for age 15-65 1987 Hepatitis C screening for age 18-79 1990 Zoster (shingles) series for age 50+ (1 of 2) 2022 Depression screening for age 12+ 04/03/2023 04/03/2022, 02/03/2021, 03/03/2019, Additional history exists COVID-19 vaccine series ( season) 2024 09/28/2022, 11/14/2021, 03/13/2021 Influenza for age 50-64 [...] Procedure Name Priority Date/Time Associated Diagnosis Comments US VENOUS INSUFFICIENCY LOWER EXTREMITY BILATERAL Routine 07/13/2024 3:57 PM CDT Bilateral lower extremity edema EKG 12 LEAD Today 06/09/2024 3:18 PM CDT Bilateral lower extremity edema LIPID PANEL W REFLEX MEASURED LDL Routine 03/24/2024 9:17 AM CDT Screening cholesterol level COLONOSCOPY SCREENING Routine 06/17/2023 12:00 AM CDT Screening for colon cancer from Last 3 Months or Most Recently Relevant to Health Maintenance Results * US VENOUS INSUFFICIENCY LOWER EXTREMITY BILATERAL (07/13/2024 3:57 PM CDT) Anatomical Region Laterality Modality LEGS Ultrasound 07/13/2024 12:5 7 PM CDT Narrative 07/21/2024 6:55 PM CDT VASCULAR ULTRASOUND REPORT EREN CONCEPCION Accession#: ?? [id number] : ?1970 ?? Study Date: ?? 07/13/2024 12:57:03 PM Age: ?54 years ?? Tech: ? PMK Gender: M ?Referring MD: EUGENIE KAUR Site: [facility] Study performed: ?Duplex US venous insufficiency. Indication for study: varicose veins and LE pain/edema Study Quality: ?Fair TECHNIQUE: Lower/upper extremity veins were examined with duplex ultrasound, color-flow and spectral Doppler per exam protocol. Vein compressibility by transducer pressure was used to evaluate presence/absence of DVT/SVT. Venous flow and competence was evaluated by flow augmentation maneuvers per exam protocol. Insufficiency studies were performed with the patient in upright position, with vein diameters measured in mm, and reflux. IMPRESSION: 1. No evidence of deep vein thrombosis in the right and left lower extremity. 2. No evidence of deep venous insufficiency in the right and left lower extremity. 3. Superficial venous insufficiency was noted in the right sapheno-femoral junction and greater saphenous vein at proximal thigh and mid calf. 4. The right greater saphenous vein and small saphenous vein are patent and compressible. 5. Superficial venous insufficiency was noted in the left sapheno-femoral junction. 6. Superficial venous insufficiency was noted in the left small saphenous vein at distal calf. 7. Incompetent varicose and/or paving rammer veins as listed below. COMPARISON: No prior study available for comparison. 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 Right Lower Extremity: No deep venous insufficiency. No evidence of DVT. Varicose vein at prox thigh off SFJ, 4.1 mm diameter, 2.5 sec reflux. Varicose vein at ant prox thigh, 1.7 mm diameter, 3.3 sec reflux. Varicose vein at prox calf, 3.8 mm diameter, 3.8 sec reflux. Left Lower Extremity: No deep venous insufficiency. No evidence of DVT. Varicose vein at med mid calf, 3.5 mm diameter, 2.2 sec reflux. MEASUREMENTS: + +--------+----+--------+------+ RIGHT ? Compress SVT Diameter Reflux ?(mm) ?? (secs) + +--------+----+--------+------+ SFJ ? yes ? None ??7.5 ?? 3.9 ?? + +--------+----+--------+------+ GSV THIGH PRX yes ? None ??6.2 ?? 1.1 ?? + +--------+----+--------+------+ GSV THIGH MID yes ? None ??5.6 ?? 0.0 ?? + +--------+----+--------+------+ GSV THIGH DST yes ? None ??5.5 ?? 0.0 ?? + +--------+----+--------+------+ GSV KNEE ? yes ? None ??6.3 ?? 0.0 ?? + +--------+----+--------+------+ GSV CALF UPPER yes ? None ??5.4 ?? 0.0 ?? + +--------+----+--------+------+ GSV CALF MID ?? yes ? None ??3.7 ?? 0.4 ?? + +--------+----+--------+------+ GSV CALF LOW ?? yes ? None ??4.6 ?? 0.0 ?? + +--------+----+--------+------+ SSV KNEE/SPJ ?? yes ? None ??5.2 ?? 0.0 ?? + +--------+----+--------+------+ SSV CALF PRX ?? yes ? None ??3.7 ?? 0.0 ?? + +--------+----+--------+------+ SSV CALF MID ?? yes ? None ??3.8 ?? 0.0 ?? + +--------+----+--------+------+ SSV CALF DST ?? yes ? None ??1.9 ?? 0.0 ?? + +--------+----+--------+------+ + +--------+----+ +------+ LEFT ? Compress SVT Diameter (mm) Reflux ? (secs) + +--------+----+ +------+ SFJ ? yes ? None ? 8.1 ? 0.6 ?? + +--------+----+ +------+ GSV THIGH PRX yes ? None ? 5.3 ? 0.0 ?? + +--------+----+ +------+ GSV THIGH MID yes ? None ? 4.2 ? + +--------+----+ +------+ GSV THIGH DST yes ? None ? 4.2 ? 0.0 ?? + +--------+----+ +------+ GSV KNEE ? yes ? None ? 4.3 ? 0.0 ?? + +--------+----+ +------+ GSV CALF UPPER yes ? None ? 3.5 ? 0.0 ?? + +--------+----+ +------+ GSV CALF MID ?? yes ? None ? 3.8 ? 0.0 ?? + +--------+----+ +------+ GSV CALF LOW ?? yes ? None ? 4.9 ? 0.0 ?? + +--------+----+ +------+ SSV KNEE/SPJ ?? yes ? None ? 5.8 ? 0.0 ?? + +--------+----+ +------+ SSV CALF PRX ?? yes ? None ? 3.6 ? 0.0 ?? + +--------+----+ +------+ SSV CALF MID ?? yes ? None ? 3.9 ? 0.0 ?? + +--------+----+ +------+ SSV CALF DST ?? yes ? None ? 3.1 ? 3.1 ?? + +--------+----+ +------+ can't evaluate Varicose Veins + + + + RIGHT Location ? Diameter (mm) Reflux (secs) + + + + prox thigh off SFJ ? 4.1 ? 2.5 ? + + + + ant prox thigh ? 1.7 ? 3.3 ? + + + + prox calf ? 3.8 ? 3.8 ? + + + + + + + + LEFT Location Diameter (mm) Reflux (secs) + + + + med mid calf ? 3.5 ? 2.2 ? + + + + DEEP SYSTEM +----+--------+-----+--------+----+ ? RIGHT ?? RIGHT LEFT ? LEFT ? Compress DVT ?? Compress DVT +----+--------+-----+--------+----+ CFV yes ? None yes ? None +----+--------+-----+--------+----+ PFV yes ? None yes ? None +----+--------+-----+--------+----+ FV ?? yes ? None yes ? None +----+--------+-----+--------+----+ POPV yes ? None yes ? None +----+--------+-----+--------+----+ can't evaluate Jame Bland MD. Electronically signed on 07/21/2024 6:55:10 PM This study was performed and interpreted by a service accredited by the Intersocietal Accreditation Commission (IAC/Vascular), [email or web address] Report generated by [employer]. ??Final ?? Procedure Note Jame Bland MD - 07/21/2024 VASCULAR ULTRASOUND REPORT EREN CONCEPCION : 1970 Study Date: 07/13/2024 12:57:03 PM Age: 54 years Tech: PMK Gender: M Referring MD: EUGENIE KAUR Site: [facility] Study performed: Duplex US venous insufficiency. Indication for study: varicose veins and LE pain/edema Study Quality: Fair TECHNIQUE: Lower/upper extremity veins were examined with duplex ultrasound,color-flow and spectral Doppler per exam protocol. Vein compressibility bytransducer pressure was used to evaluate presence/absence of DVT/SVT.Venous flow and competence was evaluated by flow augmentation maneuversper exam protocol. Insufficiency studies were performed with the patientin upright position, with vein diameters measured in mm, and reflux. IMPRESSION: 1. No evidence of deep vein thrombosis in the right and left lowerextremity. 2. No evidence of deep venous insufficiency in the right and left lowerextremity. 3. Superficial venous insufficiency was noted in the rightsapheno-femoral junction and greater saphenous vein at proximal thigh andmid calf. 4. The right greater saphenous vein and small saphenous vein are patentand compressible. 5. Superficial venous insufficiency was noted in the left sapheno- femoraljunction. 6. Superficial venous insufficiency was noted in the left small saphenousvein at distal calf. 7. Incompetent varicose and/or paving rammer veins as listed below. COMPARISON: No prior study available for comparison. 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 Right Lower Extremity: No deep venous insufficiency. No evidence of DVT. Varicose vein at proxthigh off SFJ, 4.1 mm diameter, 2.5 sec reflux. Varicose vein at ant proxthigh, 1.7 mm diameter, 3.3 sec reflux. Varicose vein at prox calf, 3.8 mmdiameter, 3.8 sec reflux. Left Lower Extremity: No deep venous insufficiency. No evidence of DVT. Varicose vein at med midcalf, 3.5 mm diameter, 2.2 sec reflux. MEASUREMENTS: + +--------+----+--------+------+ RIGHT Compress SVT Diameter Reflux (mm) (secs) + +--------+----+--------+------+ SFJ yes None 7.5 3.9 + +--------+----+--------+------+ GSV THIGH PRX yes None 6.2 1.1 + +--------+----+--------+------+ GSV THIGH MID yes None 5.6 0.0 + +--------+----+--------+------+ GSV THIGH DST yes None 5.5 0.0 + +--------+----+--------+------+ GSV KNEE yes None 6.3 0.0 + +--------+----+--------+------+ GSV CALF UPPER yes None 5.4 0.0 + +--------+----+--------+------+ GSV CALF MID yes None 3.7 0.4 + +--------+----+--------+------+ GSV CALF LOW yes None 4.6 0.0 + +--------+----+--------+------+ SSV KNEE/SPJ yes None 5.2 0.0 + +--------+----+--------+------+ SSV CALF PRX yes None 3.7 0.0 + +--------+----+--------+------+ SSV CALF MID yes None 3.8 0.0 + +--------+----+--------+------+ SSV CALF DST yes None 1.9 0.0 + +--------+----+--------+------+ + +--------+----+ +------+ LEFT Compress SVT Diameter (mm) Reflux (secs) + +--------+----+ +------+ SFJ yes None 8.1 0.6 + +--------+----+ +------+ GSV THIGH PRX yes None 5.3 0.0 + +--------+----+ +------+ GSV THIGH MID yes None 4.2 + +--------+----+ +------+ GSV THIGH DST yes None 4.2 0.0 + +--------+----+ +------+ GSV KNEE yes None 4.3 0.0 + +--------+----+ +------+ GSV CALF UPPER yes None 3.5 0.0 + +--------+----+ +------+ GSV CALF MID yes None 3.8 0.0 + +--------+----+ +------+ GSV CALF LOW yes None 4.9 0.0 + +--------+----+ +------+ SSV KNEE/SPJ yes None 5.8 0.0 + +--------+----+ +------+ SSV CALF PRX yes None 3.6 0.0 + +--------+----+ +------+ SSV CALF MID yes None 3.9 0.0 + +--------+----+ +------+ SSV CALF DST yes None 3.1 3.1 + +--------+----+ +------+ can't evaluate Varicose Veins + + + + RIGHT Location Diameter (mm) Reflux (secs) + + + + prox thigh off SFJ 4.1 2.5 + + + + ant prox thigh 1.7 3.3 + + + + prox calf 3.8 3.8 + + + + + + + + LEFT Location Diameter (mm) Reflux (secs) + + + + med mid calf 3.5 2.2 + + + + DEEP SYSTEM +----+--------+-----+--------+----+ RIGHT RIGHT LEFT LEFT Compress DVT Compress DVT +----+--------+-----+--------+----+ CFV yes None yes None +----+--------+-----+--------+----+ PFV yes None yes None +----+--------+-----+--------+----+ FV yes None yes None +----+--------+-----+--------+----+ POPV yes None yes None +----+--------+-----+--------+----+ can't evaluate Jame Bland MD. Electronically signed on 07/21/2024 6:55:10 PM This study was performed and interpreted by a service accredited by theIntersocietal Accreditation Commission (IAC/Vascular),[email or web address] Report generated by [employer]. Final Eugenie Kaur MD US * EKG 12 LEAD (06/09/2024 3:18 PM CDT) Interpretation Normal sinus rhythm Right bundle branch block Abnormal ECG No previous ECGs available Ventricular Rate 75 BPM Atrial Rate 75 BPM P-R Interval 174 ms QRS Duration 164 ms QT 414 ms QTc 462 ms P [place] 48 degrees R [place] -14 degrees T [place] 7 degrees 06/09/2024 3:18 PM CDT 06/15/2024 10:13 AM CDT Eugenie Kaur MD EKG ORD * (ABNORMAL) LIPID PANEL W REFLEX MEASURED LDL (03/24/2024 9:17 AM CDT) CHOLESTEROL,TOTAL 196 100 - 199 mg/dL 03/24/2024 7:59 PM CDT [facility] Comment: Cholesterol, Total Reference Ranges Desirable <200 mg/dL Borderline 200-239 mg/dL High >=240 mg/dL TRIGLYCERIDES 89 <150 mg/dL 03/24/2024 7:59 PM CDT [facility] HDL CHOLESTEROL 41 >40 mg/dL 7:59 PM CDT [facility] NON-HDL CHOLESTEROL 155(H) <145 mg/dl 03/24/2024 7:59 PM CDT [facility] CHOL/HDL RATIO 4.78(H) <4.50 03/24/2024 7:59 PM CDT [facility] LDL CHOLESTEROL 137(H) <=130 mg/dL 03/24/2024 7:59 PM CDT [facility] VLDL CHOLESTEROL 18 <=30 mg/dL 03/24/2024 7:59 PM CDT [facility] PROVIDER ORDERED STATUS RANDOM 03/24/2024 7:59 PM CDT [facility] Blood BLOOD SPECIMEN / Unknown Venipuncture / Unknown 03/24/2024 9:17 AM CDT 03/24/2024 9:17 AM CDT Vicki DENNEY CHEMISTRY [facility] [address] [place] [address], [place] * COLONOSCOPY SCREENING [[id number]] (06/17/2023 12:00 AM CDT) Aris Castañeda MD GI PROCEDURE ORD from Last 3 Months or Most Recently Relevant to Health Maintenance Care Teams Eddy Current Inspector Relationship Specialty Start Date End Date Vicki Alexis PA [address] [place] [address] PCP - General Physician Millinery Designer 07/22/23
[2024-08-15] MEDS: 0.9 % SODIUM CHLORIDE 1000 ml 1,000 ML IV (16:45)
[2024-08-15 16:53] LABS: Lactate Sepsis w/Reflex* 1.9 mmol/L (0.5-1.9)
[2024-08-15 16:54] LABS: Basophils Percent Auto 0.3 % (0.0-3.0); Hematocrit 42.8 % (37.0-53.0); Hemoglobin* 14.8 gm/dL (13.5-17.5); Immature Granulocytes Pct Auto 0.3 %; Lymphocytes Percent Auto 6.5 % (20-44); Mean Corpuscular HGB Conc 35 gm/dL (32-36); Mean Corpuscular Hemoglobin 30 pg (26-34); Mean Corpuscular Volume 85 fL (80-100); Monocytes Percent Auto 9.5 % (0.0-11.0); Neutrophils Percent Auto 83.4 % (42.0-72.0); Platelet Count* 157 K/uL (140-440); RDW Coefficient of Variation % 12.6 % (11.5-15.5); Red Blood Count 5.02 m/uL (4.30-5.90); White Blood Count* 11.76 K/uL (4.50-11.00)
[2024-08-15 16:58] LABS: Slide Review Reflex No
[2024-08-15 17:14] LABS: Chloride* 92 mmol/L (96-114); Potassium* 3.1 mmol/L (3.6-5.1); Sodium* 129 mmol/L (135-149)
[2024-08-15 17:17] LABS: Anion Gap 8 mEq/L (7-15); Carbon Dioxide* 29 mmol/L (20-32); Creatinine* 0.9 mg/dL (0.5-1.5); Est. Creatinine Clearance* 114.75; Estimated Glomerular Filt Rate 103 ml/min
[2024-08-15 17:18] LABS: Blood Urea Nitrogen* 12 mg/dL (7-30); Calcium* 8.2 mg/dL (8.4-10.6); Glucose* 144 mg/dL (60-115)
[2024-08-15 17:32] LABS: C Reactive Protein* 26.9 mg/dL (0.5-1.0)
[2024-08-15] MEDS: POTASSIUM CHLORIDE 10 MEQ CAPSULE ER 40 MEQ PO (17:39)
[2024-08-15] MEDS: CEFAZOLIN 1 GM in 0.9 % SODIUM CHLORIDE Mini-bag 100 ML IVPB (17:40)
[2024-08-15 18:00] VITALS: PULSE 96; RESP 16
[2024-08-15 19:00] VITALS: BP 112/74; PULSE 82; RESP 16; O2SAT 97
== END 2024-08-15 19:25 | disposition home or self-care (01) ==
PROVIDERS: Emergency Provider Emergency Medicine; PCP Physician Assistant Medical
DX: L03.115 Cellulitis of right lower limb (principal); E87.6 Hypokalemia
CPT/HCPCS: 36415; 80048; 83605; 85025; 86140; 93971; 96365; 99284; A9270; J0690; J7030